=== PATIENT | female | born 1955 | race Caucasian/White ===

== ENCOUNTER 2022-11-18 19:43 | Inpatient (IN) | payer MEDICARE, OTHER, SELFPAY ==
[2022-11-18 19:46] VITALS: BP 144/79; PULSE 113; RESP 20; TEMP 36.8; O2SAT 92; BMI 42.0
--- NOTE | 2022-11-18 19:59 | DI.RAD.S_ITS ---
PROCEDURE: XR CHEST 1V INDICATIONS: Shortness of breath TECHNIQUE: One view of the chest was acquired. COMPARISON: None. FINDINGS: Surgical changes and devices: None. Lungs and pleura: An incomplete inspiratory result is noted, causing a crowded appearance to the lung markings. No focal infiltrates are seen. No pneumothorax or significant pleural effusions are seen. Mediastinum: Mediastinal contours appear normal. Heart size is normal. Bones and chest wall: No suspicious bony lesions. Overlying soft tissues appear unremarkable. IMPRESSION: Limited portable chest examination, without a significant cardiopulmonary abnormality identified. Dictated by: Bubba Paul M.D. on 11/18/2022 at 19:54 Approved by: Bubba Paul M.D. on 11/18/2022 at 19:54
[2022-11-18] MEDS: ALBUTEROL/IPRATROPIUM 3 ML AMPUL INH (20:17)
[2022-11-18 20:18] VITALS: PULSE 108; RESP 22; O2SAT 92
[2022-11-18 20:18] LABS: Add Manual Diff / Slide Review NO; Basophils Absolute Auto 100 /uL (0-100); Basophils Percent Auto 1.1 % (0-2); Eosinophils Absolute Auto 1000 /uL (0-450); Eosinophils Percent Auto 12.6 % (2-4); Hematocrit 39.8 % (36-46); Hemoglobin 13.6 g/dL (12.0-16.0); Lymphocytes Absolute Auto 2200 /uL (1100-4500); Mean Corpuscular HGB Conc 34.3 % (30-36); Mean Corpuscular Hemoglobin 29.5 PG (26-34); Mean Corpuscular Volume 85.9 fL (80-100); Monocytes Absolute Auto 1100 /uL (0-900); Monocytes Percent Auto 14.4 % (3-14); Neutrophils Absolute Auto 3300 /uL (1500-7000); Neutrophils Percent Auto 42.9 % (50-75); Platelet Count 348 X10^3/uL (150-400); Red Blood Cell Count 4.63 X10^6/uL (4.0-5.2); Red Cell Distribution Width 13.5 % (11.6-14.8); White Blood Cell Count 7.7 X10^3/uL (4.5-11.0)
[2022-11-18 20:22] LABS: Prothrombin Time 11.4 SECONDS (10.1-12.7)
[2022-11-18 20:26] LABS: Lactate (Lactic Acid) 1.1 mmol/L (0.7-2.1)
[2022-11-18 20:27] LABS: Alanine Aminotransferase 30 IU/L (<35); Albumin Globulin Ratio 1.3 (1.0-2.8); Alkaline Phosphatase 74 U/L (38-126); Aspartate Aminotransferase 27 IU/L (14-36); BUN Creatinine Ratio 20.9 (6-22); Bilirubin Total 0.5 mg/dL (0.2-1.3); Blood Urea Nitrogen 14 mg/dL (7-17); Calcium 8.6 mg/dL (8.4-10.2); Carbon Dioxide 30 mmol/L (22-32); Chloride 102 mmol/L (98-107); Estimated Glomerular Filt Rate > 60 mL/min (>60); Glucose 162 mg/dL (80-110); HEMOLYSIS < 15 (0-50); Potassium 3.9 mmol/L (3.4-5.1); Sodium 136 mmol/L (137-145)
[2022-11-18 20:38] LABS: NT-proBNP (BNP-Adult 18+) 38 pg/mL (<125); Troponin I < 0.012 ng/mL (0.01-0.034)
[2022-11-18 22:09] LABS: Adenovirus Not Detected (Not Detect); B. parapertussis Not Detected (Not Detecte); Bordetella pertussis Not Detected (Not Detecte); Chlamydophila pneumoniae Not Detected (Not Detect); Coronavirus 229E Not Detected (Not Detect); Coronavirus HKU1 Not Detected (Not Detect); Coronavirus NL 63 Not Detected (Not Detect); Coronavirus OC43 Not Detected (Not Detect); Human Metapneumovirus Not Detected (Not Detect); Human Rhinovirus/Enterovirus Not Detected (Not Detect); Influenza A Not Detected (Not Detect); Influenza B Not Detected (Not Detect); Mycoplasma pneumoniae Not Detected (Not Detect); Parainfluenza Virus 1 Not Detected (Not Detect); Parainfluenza Virus 2 Not Detected (Not Detect); Parainfluenza Virus 3 Not Detected (Not Detect); Parainfluenza Virus 4 Not Detected (Not Detect); Respiratory Syncytial Virus Not Detected (Not Detect); SARS- CoV-2 Not Detected (Not Detecte)
--- NOTE | 2022-11-18 22:33 | ED.SOB ---
HPI - SOB/Dyspnea General Chief Complaint: Shortness of Breath/Dyspnea Stated Complaint: SOB/chest pain/cough/oxygen low (89) Time Seen by Provider: 11/18/22 22:31 Source: patient Mode of arrival: Wheelchair Limitations: no limitations History of Present Illness HPI Narrative: This is a 67-year-old female with lung issues following with pulmonology on inhalers, diabetes, hypertension, dyslipidemia with persistent shortness of breath for the past year patient states she was placed on inhalers before that. She is seen a client support professional and was told to continue inhalers but does not have a clear diagnosis. She states she is had steroids and a Z-Jj 3 times they have been helpful each time but then symptoms return. Last episode of steroids and Z-Jj was 6 weeks ago. Patient states no fevers, she had some chest discomfort today early in the day. She is had a cough with white productive foamy sputum. She denies fevers or chills. She denies nasal congestion. No swelling of her extremities. Today she comes because she was so short of breath she would to stop and take a break while walking. Patient states she felt much better after DuoNeb here but starting to recur. She does note she is been traveling in the last 6 months across the country she is been to [facility], [place] back to this area and is headed back to [facility] where she lives. Prior history C-sections. No known drug allergies. No prior tobacco use. Has 2 alcoholic drinks every couple of weeks. No recreational drugs. She does have what sounds like a steroid inhaler but is not using it regularly only as a rescue medication. Related Data Home Medications Medication Instructions Recorded Confirmed albuterol sulfate 90 mcg/actuation 2 puff inhalation 4XD PRN dyspnea 11/19/22 11/19/22 aerosol inhaler ipratropium 0.5 mg-albuterol 3 mg 3 ml inhalation 4XD 11/19/22 11/19/22 (2.5 mg base)/3 mL nebulization soln irbesartan 150 mg tablet 75 mg PO DAILY blood pressure 11/19/22 11/19/22 metformin 500 mg tablet,extended 500 mg PO DAILY 11/19/22 11/19/22 release 24 hr montelukast 10 mg tablet 10 mg PO DAILY itch 11/19/22 11/19/22 pravastatin 40 mg tablet 40 mg PO DAILY cholesterol 11/19/22 11/19/22 Allergies Allergy/AdvReac Type Severity Reaction Status Date / Time No Known Drug Allergies Allergy Verified 11/18/22 19:46 Review of Systems Review of Systems ROS Unobtainable: All systems reviewed & are unremarkable except as noted in HPI and below Patient History Social History Smoking Status: Never smoker Smoking Status: Never smoker alcohol intake frequency: a few times a week Substance Use Type: does not use Exam Narrative Exam Narrative: GENERAL: Alert and oriented x three, female in mild distress. HEENT: Head normocephalic, atraumatic, EOMI, pupils reactive, face symmetric, moist mucous membranes NECK: Supple, full range of motion CARDIOVASCULAR: Regular rate and rhythm without murmurs, rubs or gallops. RESPIRATORY: Breath sounds equal bilaterally, Bilateral wheezes upper lungs, not appreciated as much in the lower, no rales or rhonchi. no tachypnea. Patient does appear little short of breath with speech. She is coughing up some white productive sputum along with sort of clear liquid phone. ABDOMEN: Soft, nontender. Normoactive bowel sounds all 4 quadrants. No guarding or rebound, rigidity, no mass : No CVA tenderness EXTREMITIES: Normal range of motion, no clubbing or edema. Neurovascularly intact NEUROLOGICAL: Cranial nerves II through XII grossly intact. Moving all extremities SKIN: Warm, dry, no petechiae, no rashes or lesions. Initial Vital Signs Initial Vital Signs: Vital Signs Temperature 98.3 F 11/18/22 19:46 Pulse Rate 113 H 11/18/22 19:46 Respiratory Rate 20 11/18/22 19:46 Blood Pressure 144/79 H 11/18/22 19:46 Pulse Oximetry 92 11/18/22 19:46 Oxygen Delivery Method Room Air 11/18/22 19:46 Course Orders Ordered: ED Orders 11/18/22 23:26 CT angio chest PE protocol Stat 11/19/22 02:00 Sputum Culture Stat Acetaminophen (Acetaminophen 325 Mg Tablet) 650 mg PO Q6H JOÃO Last Admin: 11/19/22 04:39 Dose: Not Given Documented By: AT Al Hydrox/Mg Hydrox/Simethicone (Mag Hydrox/Alum/Simeth 30 Ml Udc) 30 ml PO Q6HR PRN PRN Reason: Dyspepsia Albuterol (Albuterol 2.5 Mg/3 Ml Neb (Adult)) 2.5 mg INH [id number] PRN PRN Reason: Shortness Of Breath Albuterol/Ipratropium (Albuterol/Ipratropium 3 Ml Ampul) 3 ml INH QID JOÃO Azithromycin (Azithromycin 250 Mg Tablet) 250 mg PO DAILY JOÃO Losartan Potassium (Losartan 25 Mg Tablet) 75 mg PO DAILY JOÃO Metformin HCl (Metformin Hcl 500 Mg Tablet) 500 mg PO 0800 JOÃO Montelukast Sodium (Montelukast 10 Mg Tablet) 10 mg PO DAILY JOÃO Naloxone HCl (Naloxone 0.4 Mg/Ml Vial) 0.2 mg IV Q2MIN PRN PRN Reason: Opiate Reversal Pravastatin Sodium (Pravastatin 20 Mg Tablet) 40 mg PO BEDTIME JOÃO Prednisone (Prednisone 20 Mg Tablet) 40 mg PO DAILY JOÃO Discontinued Medications Albuterol (Albuterol 2.5 Mg/3 Ml Neb (Adult)) 5 mg INH NOW ONE Stop: 11/18/22 23:27 Last Admin: 11/19/22 00:11 Dose: 5 mg Documented By: DARIEN Albuterol/Ipratropium (Albuterol/Ipratropium 3 Ml Ampul) 3 ml INH NOW ONE Stop: 11/18/22 20:14 Last Admin: 11/18/22 20:17 Dose: 3 ml Documented By: RAMON Albuterol/Ipratropium (Albuterol/Ipratropium 3 Ml Ampul) 3 ml INH RTQ4HR PRN PRN Reason: Shortness Of Breath Methylprednisolone (Methylprednisolone 125 Mg/2 Ml Vial) 125 mg IV NOW ONE Stop: 11/18/22 23:27 Last Admin: 11/18/22 23:35 Dose: 125 mg Documented By: DANIELLE Vital Signs Vital signs: Vital Signs - 8 hr 11/18/22 19:46 11/18/22 20:18 Temperature 98.3 F Pulse Rate 113 H 108 H Respiratory Rate 20 22 Blood Pressure 144/79 H Pulse Oximetry 92 92 Oxygen Delivery Method Room Air Room Air MDM - SOB/Dyspnea Lab Data 11/18/22 20:05 11/18/22 20:05 Labs: Lab Results 11/18/22 11/18/22 11/18/22 Range/Units 20:05 20:05 20:05 WBC 7.7 (4.5-11.0) X10^3/uL RBC 4.63 (4.0-5.2) X10^6/uL Hgb 13.6 (12.0-16.0) g/dL Hct 39.8 (36-46) % MCV 85.9 (80-100) fL MCH 29.5 (26-34) PG MCHC 34.3 (30-36) % RDW 13.5 (11.6-14.8) % Plt Count 348 (150-400) X10^3/uL Neut % (Auto) 42.9 L (50-75) % Lymph % (Auto) 29.0 (25-40) % [place] % (Auto) 14.4 H (3-14) % Eos % (Auto) 12.6 H (2-4) % Baso % (Auto) 1.1 (0-2) % Neut # (Auto) 3300 (5306-6332) /uL Lymph # (Auto) 2200 (3357-0200) /uL [place] # (Auto) 1100 H (0-900) /uL Eos # (Auto) 1000 H (0-450) /uL Baso # (Auto) 100 (0-100) /uL PT 11.4 (10.1-12.7) SECONDS INR 1.0 (0.9-1.3) Sodium 136 L (137-145) mmol/L Potassium 3.9 (3.4-5.1) mmol/L Chloride 102 (98-107) mmol/L Carbon Dioxide 30 (22-32) mmol/L BUN 14 (7-17) mg/dL Creatinine 0.67 (0.52-1.04) mg/dL Estimated GFR > 60 (>60) mL/min BUN/Creatinine Ratio 20.9 (6-22) Glucose 162 H (80-110) mg/dL Lactate (0.7-2.1) mmol/L Calcium 8.6 (8.4-10.2) mg/dL Total Bilirubin 0.5 (0.2-1.3) mg/dL AST 27 (14-36) IU/L ALT 30 (<35) IU/L Alkaline Phosphatase 74 (38-126) U/L Troponin I < 0.012 (0.01-0.034) ng/mL NT-Pro-B Natriuret Pep 38 (<125) pg/mL Total Protein 7.0 (6.3-8.2) g/dL Albumin 4.0 (3.5-5.0) g/dL Globulin 3.0 (1.7-4.1) g/dL Albumin/Globulin Ratio 1.3 (1.0-2.8) Chlamy pneumoniae PCR (Not Detect) Adenovirus (PCR) (Not Detect) B. pertussis DNA (PCR) (Not Detecte) B.parapertussis DNA PCR (Not Detecte) Coronavirus OC43 (PCR) (Not Detect) Coronavirus HKU1 (PCR) (Not Detect) Coronavirus 229E (PCR) (Not Detect) SARS-CoV-2 (PCR) (Not Detecte) Coronavirus NL63 (PCR) (Not Detect) Human Metapneumovir PCR (Not Detect) Influenza Type A (PCR) (Not Detect) Influenza Type B (PCR) (Not Detect) M. pneumoniae (PCR) (Not Detect) Parainfluenza 1 (PCR) (Not Detect) Parainfluenza 2 (PCR) (Not Detect) Parainfluenza 3 (PCR) (Not Detect) Parainfluenza 4 (PCR) (Not Detect) RSV (PCR) (Not Detect) Entero/Rhino (PCR) (Not Detect) 11/18/22 11/18/22 11/18/22 Range/Units 20:05 20:05 20:47 WBC (4.5-11.0) X10^3/uL RBC (4.0-5.2) X10^6/uL Hgb (12.0-16.0) g/dL Hct (36-46) % MCV (80-100) fL MCH (26-34) PG MCHC (30-36) % RDW (11.6-14.8) % Plt Count (150-400) X10^3/uL Neut % (Auto) (50-75) % Lymph % (Auto) (25-40) % [place] % (Auto) (3-14) % Eos % (Auto) (2-4) % Baso % (Auto) (0-2) % Neut # (Auto) (9380-2151) /uL Lymph # (Auto) (5727-6503) /uL [place] # (Auto) (0-900) /uL Eos # (Auto) (0-450) /uL Baso # (Auto) (0-100) /uL PT (10.1-12.7) SECONDS INR (0.9-1.3) Sodium (137-145) mmol/L Potassium (3.4-5.1) mmol/L Chloride (98-107) mmol/L Carbon Dioxide (22-32) mmol/L BUN (7-17) mg/dL Creatinine (0.52-1.04) mg/dL Estimated GFR (>60) mL/min BUN/Creatinine Ratio (6-22) Glucose (80-110) mg/dL Lactate 1.1 (0.7-2.1) mmol/L Calcium (8.4-10.2) mg/dL Total Bilirubin (0.2-1.3) mg/dL AST (14-36) IU/L ALT (<35) IU/L Alkaline Phosphatase (38-126) U/L Troponin I (0.01-0.034) ng/mL NT-Pro-B Natriuret Pep Cancelled (<125) pg/mL Total Protein (6.3-8.2) g/dL Albumin (3.5-5.0) g/dL Globulin (1.7-4.1) g/dL Albumin/Globulin Ratio (1.0-2.8) Chlamy pneumoniae PCR Not detected (Not Detect) Adenovirus (PCR) Not detected (Not Detect) B. pertussis DNA (PCR) Not detected (Not Detecte) B.parapertussis DNA PCR Not detected (Not Detecte) Coronavirus OC43 (PCR) Not detected (Not Detect) Coronavirus HKU1 (PCR) Not detected (Not Detect) Coronavirus 229E (PCR) Not detected (Not Detect) SARS-CoV-2 (PCR) Not detected (Not Detecte) Coronavirus NL63 (PCR) Not detected (Not Detect) Human Metapneumovir PCR Not detected (Not Detect) Influenza Type A (PCR) Not detected (Not Detect) Influenza Type B (PCR) Not detected (Not Detect) M. pneumoniae (PCR) Not detected (Not Detect) Parainfluenza 1 (PCR) Not detected (Not Detect) Parainfluenza 2 (PCR) Not detected (Not Detect) Parainfluenza 3 (PCR) Not detected (Not Detect) Parainfluenza 4 (PCR) Not detected (Not Detect) RSV (PCR) Not detected (Not Detect) Entero/Rhino (PCR) Not detected (Not Detect) Imaging Data Chest x-ray: Radiologist's Impression: [address] [address] XRay Report Signed Patient: Constance Espinoza MR#: [id number] : 1955 Acct:[id number] Age/Sex: 67 / F Date of Service: 11/18/22 Loc: ED Accession Number: [id number] ?? Procedure: XR chest 1V Ordering Provider: Kitty Aguilar D.O. PROCEDURE:? XR CHEST 1V ? INDICATIONS:? Shortness of breath ? TECHNIQUE:? One view of the chest was acquired.? ? COMPARISON:? None. ? FINDINGS:? ? Surgical changes and devices:? None.? ? Lungs and pleura:? An incomplete inspiratory result is noted, causing a crowded appearance to the lung markings.? No focal infiltrates are seen.? No pneumothorax or significant pleural effusions are seen. ? ? Mediastinum:? Mediastinal contours appear normal.? Heart size is normal.? ? Bones and chest wall:? No suspicious bony lesions.? Overlying soft tissues appear unremarkable.? ? ? IMPRESSION:? ? Limited portable chest examination, without a significant cardiopulmonary abnormality identified.? ? ? Dictated by: Bubba Paul M.D. on 11/18/2022 at 19:54 ? ? Approved by: Bubba Paul M.D. on 11/18/2022 at 19:54?? ECG Data Attestation: I personally reviewed and interpreted this ECG as follows: Prior ECG tracings: not available for review Interpretation: Sinus tachycardia with premature atrial complexes rate of 1 0 6p are 160, QRS is 70 QTC of 456. No acute ST elevation or depression is appreciated. No priors for comparison. MDM Narrative Medical decision making narrative: This is a 67-year-old female with known lung but unclear diagnosis disease. Patient is normally on inhalers but not using her steroid inhaler regularly. Appears to likely be having an exacerbation but is tachycardic and has been traveling across the country in an RV for the past 6 months. Patient's chest x-ray does not show acute change, labs do not show a clear infectious cause normal hemoglobin electrolytes show a sodium 136 normal renal function glucose of 162- lactate negative troponin and BNP of 38. Respiratory panel was negative. Patient had DuoNeb which was somewhat helpful. Was given steroids and additional nebs. discussed with patient D-dimer versus CT angio, I suspect based on her age, BMI it will likely be positive and she is somewhat high-risk with her travel and tachycardia and after discussion elects for CT angio of the chest which was negative for pulmonary emboli, no clear changes to lung parenchyma, pneumonia or other clear source for her hypoxia. She has a thyroid nodule she was updated as well as an accessory splenule. Patient was noted to be 89-90% sitting in bed she feels much improved she would like to go home but when ambulated drops to 87-83%. Patient can maintain 92% with 1-2 L nasal cannula. No increased respiratory distress and she states she is much improved from when she 1st arrived. Spoke with Dr. Johnson, telehospitalist who accepts for admission. Discharge Plan Departure Patient Disposition: Admitted As Inpatient Clinical Impression: Acute respiratory failure with hypoxia, Thyroid nodule, Accessory spleen, Exacerbation of reactive airway disease Admit Date/Time: 11/19/22 02:02 Admit Provider: Kristian Johnson
--- NOTE | 2022-11-18 23:26 | DI.CT.S_ITS ---
PROCEDURE: CT ANGIO CHEST PE PROTOCOL INDICATIONS: worsening short of breath, traveling [place] country TECHNIQUE: After the administration of intravenous contrast, 2 mm thick sections acquired from the pulmonary apices to the posterior costophrenic angles. 3-dimensional maximum intensity projection (MIP) coronal and sagittal reformats were then acquired through the thorax. For radiation dose reduction, the following was used: automated exposure control, adjustment of mA and/or kV according to patient size. COMPARISON: [facility], , XR CHEST 1V, 11/18/2022, 20:00. FINDINGS: Image quality: Limited by bolus timing. Pulmonary arteries: The bolus of the contrast injection is suboptimal. The main pulmonary artery measures approximately 190 Hounsfield units. Pulmonary artery densities are greater than 250 Hounsfield units are considered to be ideal for evaluation of pulmonary embolism. However, no large or central pulmonary emboli are seen on these images. No pulmonary emboli are seen more distally, although sensitivity for detection of such is limited on this study. Lungs and pleura: Mild streaky opacities can be seen at the lung bases, with the appearance of atelectasis. No pleural effusions or pneumothorax. Central and peripheral airways are patent. Mediastinum: Heart size is normal, without pericardial effusion. No mediastinal or hilar adenopathy. Borderline prominent mediastinal lymph nodes can be seen. Thoracic aorta is normal in caliber and enhancement. Esophagus is normal in caliber, without hiatal hernia. Bones and chest wall: No suspicious bony lesions. Ribs and thoracic spine appear intact throughout. Age-appropriate bony degenerative changes are seen. Thyroid gland demonstrates a 2.4 cm right thyroid nodule. No axillary or supraclavicular adenopathy. Abdomen: Visualized upper abdominal solid organs appear normal in the early arterial phase of enhancement. Incidental note is made of an accessory splenule along the hilum of the primary spleen. IMPRESSION: No large or central pulmonary embolism can be seen. A 2.4 cm right thyroid nodule is noted. When clinically appropriate, a follow-up thyroid ultrasound would be recommended. Additional findings: Accessory splenule Dictated by: Bubba Paul M.D. on 11/18/2022 at 23:29 Approved by: Bubba Paul M.D. on 11/18/2022 at 23:32
[2022-11-18] MEDS: methylPREDNISolone 125 MG/2 ML VIAL IV (23:35)
[2022-11-19] VITALS (9 sets, daily range): BP systolic 120–156; BP diastolic 55–67; PULSE 93–117; RESP 17–24; TEMP 36.3–37; O2SAT 89–93; BMI 42.0
[2022-11-19] MEDS: ALBUTEROL 2.5 MG/3 ML NEB (ADULT) 5 MG INH (00:11)
--- NOTE | 2022-11-19 03:38 | PM.HP.1 ---
History of Present Illness History of Present Illness Date Patient Seen: 11/19/22 Chief complaint: SOB/chest pain/cough/oxygen low (89) Narrative: 67 y/o recently diagnosed with reactive airway disease, had PFTs, at home with albuterol and singulair, inhaled steroid, who developed progressive shortness of breath over the past few days and presents to Ed hypoxemic. [facility] Social History Smoking Status: Never smoker Meds Home Medications and Allergies Home Medications Medication Instructions Recorded Confirmed Type albuterol sulfate 90 mcg/actuation 2 puff inhalation 4XD PRN dyspnea 11/19/22 11/19/22 History aerosol inhaler ipratropium 0.5 mg-albuterol 3 mg 3 ml inhalation 4XD 11/19/22 11/19/22 History (2.5 mg base)/3 mL nebulization soln irbesartan 150 mg tablet 75 mg PO DAILY blood pressure 11/19/22 11/19/22 History metformin 500 mg tablet,extended 500 mg PO DAILY 11/19/22 11/19/22 History release 24 hr montelukast 10 mg tablet 10 mg PO DAILY itch 11/19/22 11/19/22 History pravastatin 40 mg tablet 40 mg PO DAILY cholesterol 11/19/22 11/19/22 History Allergies Allergy/AdvReac Type Severity Reaction Status Date / Time No Known Drug Allergies Allergy Verified 11/18/22 19:46 Review of Systems Constitutional Comments: no fever or chills Cardiovascular Comments: w/o chest pain or palpitations Respiratory Comments: shortness of breath, wheezing, non-productive cough Gastrointestinal Comments: w/o N/V Genitourinary Comments: w/o dysuria Allergic/Immunologic Comments: seasonal allergies Exam Vital Signs (past 8 hours): - 11/18/22 19:46 11/18/22 20:18 11/19/22 02:28 Temperature 98.3 F 97.3 F L Pulse Rate 113 H 108 H 93 H Respiratory Rate 20 22 22 Blood Pressure 144/79 H 153/67 H Pulse Oximetry 92 92 92 Oxygen Delivery Method Room Air Room Air Nasal Cannula Oxygen Flow Rate 2 Oxygen Delivery Method Nasal Cannula Oxygen Flow Rate 2 Const Other: sitting in bed in no distress Cardio Other: tachycardic, regular GI Other: soft, not distended Skin Other: w/o rashes Neuro Other: w/o focal deficits Objective Labs 11/18/22 20:05 11/18/22 20:05 Labs: Laboratory Results - last 24 hr 11/18/22 11/18/22 11/18/22 20:05 20:05 20:05 WBC 7.7 RBC 4.63 Hgb 13.6 Hct 39.8 MCV 85.9 MCH 29.5 MCHC 34.3 RDW 13.5 Plt Count 348 Neut % (Auto) 42.9 L Lymph % (Auto) 29.0 [place] % (Auto) 14.4 H Eos % (Auto) 12.6 H Baso % (Auto) 1.1 Neut # (Auto) 3300 Lymph # (Auto) 2200 [place] # (Auto) 1100 H Eos # (Auto) 1000 H Baso # (Auto) 100 PT 11.4 INR 1.0 Sodium 136 L Potassium 3.9 Chloride 102 Carbon Dioxide 30 BUN 14 Creatinine 0.67 Estimated GFR > 60 BUN/Creatinine Ratio 20.9 Glucose 162 H Lactate Calcium 8.6 Total Bilirubin 0.5 AST 27 ALT 30 Alkaline Phosphatase 74 Troponin I < 0.012 NT-Pro-B Natriuret Pep 38 Total Protein 7.0 Albumin 4.0 Globulin 3.0 Albumin/Globulin Ratio 1.3 Chlamy pneumoniae PCR Adenovirus (PCR) B. pertussis DNA (PCR) B.parapertussis DNA PCR Coronavirus OC43 (PCR) Coronavirus HKU1 (PCR) Coronavirus 229E (PCR) SARS-CoV-2 (PCR) Coronavirus NL63 (PCR) Human Metapneumovir PCR Influenza Type A (PCR) Influenza Type B (PCR) M. pneumoniae (PCR) Parainfluenza 1 (PCR) Parainfluenza 2 (PCR) Parainfluenza 3 (PCR) Parainfluenza 4 (PCR) RSV (PCR) Entero/Rhino (PCR) 11/18/22 11/18/22 11/18/22 20:05 20:05 20:47 WBC RBC Hgb Hct MCV MCH MCHC RDW Plt Count Neut % (Auto) Lymph % (Auto) [place]yer % (Auto) Eos % (Auto) Baso % (Auto) Neut # (Auto) Lymph # (Auto) [place]yer # (Auto) Eos # (Auto) Baso # (Auto) PT INR Sodium Potassium Chloride Carbon Dioxide BUN Creatinine Estimated GFR BUN/Creatinine Ratio Glucose Lactate 1.1 Calcium Total Bilirubin AST ALT Alkaline Phosphatase Troponin I NT-Pro-B Natriuret Pep Cancelled Total Protein Albumin Globulin Albumin/Globulin Ratio Chlamy pneumoniae PCR Not detected Adenovirus (PCR) Not detected B. pertussis DNA (PCR) Not detected B.parapertussis DNA PCR Not detected Coronavirus OC43 (PCR) Not detected Coronavirus HKU1 (PCR) Not detected Coronavirus 229E (PCR) Not detected SARS-CoV-2 (PCR) Not detected Coronavirus NL63 (PCR) Not detected Human Metapneumovir PCR Not detected Influenza Type A (PCR) Not detected Influenza Type B (PCR) Not detected M. pneumoniae (PCR) Not detected Parainfluenza 1 (PCR) Not detected Parainfluenza 2 (PCR) Not detected Parainfluenza 3 (PCR) Not detected Parainfluenza 4 (PCR) Not detected RSV (PCR) Not detected Entero/Rhino (PCR) Not detected Assessment & Plan Assessment and plan (1) Exacerbation of reactive airway disease: Status: Acute (2) Acute respiratory failure with hypoxia: Status: Acute (3) Thyroid nodule: Status: Acute (4) HTN (hypertension): Status: Acute (5) HLD (hyperlipidemia): Status: Acute (6) Diabetes: Status: Acute Plan 67 y/o with PMH of reactive airway disease, has steroid inhaler at home that she does not use consistently, who had PFTs but not aware of results, presented to ED with severe shortness of breath, hypoxemic, admitted for Tx with steroid, bronchodilators, O2 Assessment & Plan narrative: 1. Reactive Airway Disease - Acute Exacerbation - pulmonary follow up - Singulair - bronchodilators, steroid - zithromax for 5 days 2. Acute Hypoxemic Respiratory Failure - O2 for sats of >92 - never used oxygen before 3. HTN - Irbesartan at home - Losartan 75 mg daily 4. DM - Metformin 500 mg ER daily 5. HLD - statin
[2022-11-19] MEDS: ALBUTEROL/IPRATROPIUM 3 ML AMPUL INH ×5 (07:15→20:35)
[2022-11-19] MEDS: LOSARTAN 25 MG TABLET 75 MG PO (08:43)
[2022-11-19] MEDS: AZITHROMYCIN 250 MG TABLET PO (08:44)
[2022-11-19] MEDS: MONTELUKAST 10 MG TABLET PO (08:44)
[2022-11-19] MEDS: METFORMIN HCL 500 MG TABLET PO (08:44)
[2022-11-19] MEDS: predniSONE 20 MG TABLET 40 MG PO (08:44)
--- NOTE | 2022-11-19 08:52 | P.PN_ITS ---
Subjective Subjective Interval history: Patient feeling somewhat better but still requiring O2 supplementation. The coughing secondary to bronchospasm. No fever or chills. Exam Vital Signs (past 8 hours): - 11/19/22 02:28 11/19/22 02:45 11/19/22 02:10 Temperature 97.3 F L 98 F Pulse Rate 93 H 103 H Respiratory Rate 22 23 Blood Pressure 153/67 H 156/65 H Pulse Oximetry 92 93 Oxygen Delivery Method Nasal Cannula Nasal Cannula Oxygen Flow Rate 2 2 Fraction of Inspired Oxygen 11/19/22 05:57 11/19/22 07:24 Temperature Pulse Rate 100 H Respiratory Rate 20 Blood Pressure Pulse Oximetry 90 L Oxygen Delivery Method Nasal Cannula Nasal Cannula Oxygen Flow Rate 1 1 Fraction of Inspired Oxygen 24 Fraction of Inspired Oxygen 24 Oxygen Delivery Method Nasal Cannula Oxygen Flow Rate 1 Narrative Exam Narrative: General: Alert and oriented x3. In no acute medical distress HEENT: Pupils equal reactive to light. Extraocular movements normal. Requiring O2 supplementation by nasal prongs. Neck is supple. Trachea is midline. Head is normocephalic. Cardiovascular: Heart sounds S1 and S2 with no extra sounds or murmurs. Peripheral pulses equal bilaterally. Respiratory: Decreased air entry throughout the lung prince in general. Expiratory wheeze intermittently throughout the lung prince Gastrointestinal: Abdomen is soft. Nontender. Bowel sounds normal. Objective Labs 11/18/22 20:05 11/18/22 20:05 Labs: Laboratory Results - last 24 hr 11/18/22 11/18/22 11/18/22 20:05 20:05 20:05 WBC 7.7 RBC 4.63 Hgb 13.6 Hct 39.8 MCV 85.9 MCH 29.5 MCHC 34.3 RDW 13.5 Plt Count 348 Neut % (Auto) 42.9 L Lymph % (Auto) 29.0 [place] % (Auto) 14.4 H Eos % (Auto) 12.6 H Baso % (Auto) 1.1 Neut # (Auto) 3300 Lymph # (Auto) 2200 [place] # (Auto) 1100 H Eos # (Auto) 1000 H Baso # (Auto) 100 PT 11.4 INR 1.0 Sodium 136 L Potassium 3.9 Chloride 102 Carbon Dioxide 30 BUN 14 Creatinine 0.67 Estimated GFR > 60 BUN/Creatinine Ratio 20.9 Glucose 162 H Lactate Calcium 8.6 Total Bilirubin 0.5 AST 27 ALT 30 Alkaline Phosphatase 74 Troponin I < 0.012 NT-Pro-B Natriuret Pep 38 Total Protein 7.0 Albumin 4.0 Globulin 3.0 Albumin/Globulin Ratio 1.3 Chlamy pneumoniae PCR Adenovirus (PCR) B. pertussis DNA (PCR) B.parapertussis DNA PCR Coronavirus OC43 (PCR) Coronavirus HKU1 (PCR) Coronavirus 229E (PCR) SARS-CoV-2 (PCR) Coronavirus NL63 (PCR) Human Metapneumovir PCR Influenza Type A (PCR) Influenza Type B (PCR) M. pneumoniae (PCR) Parainfluenza 1 (PCR) Parainfluenza 2 (PCR) Parainfluenza 3 (PCR) Parainfluenza 4 (PCR) RSV (PCR) Entero/Rhino (PCR) 11/18/22 11/18/22 11/18/22 20:05 20:05 20:47 WBC RBC Hgb Hct MCV MCH MCHC RDW Plt Count Neut % (Auto) Lymph % (Auto) [place] % (Auto) Eos % (Auto) Baso % (Auto) Neut # (Auto) Lymph # (Auto) [place] # (Auto) Eos # (Auto) Baso # (Auto) PT INR Sodium Potassium Chloride Carbon Dioxide BUN Creatinine Estimated GFR BUN/Creatinine Ratio Glucose Lactate 1.1 Calcium Total Bilirubin AST ALT Alkaline Phosphatase Troponin I NT-Pro-B Natriuret Pep Cancelled Total Protein Albumin Globulin Albumin/Globulin Ratio Chlamy pneumoniae PCR Not detected Adenovirus (PCR) Not detected B. pertussis DNA (PCR) Not detected B.parapertussis DNA PCR Not detected Coronavirus OC43 (PCR) Not detected Coronavirus HKU1 (PCR) Not detected Coronavirus 229E (PCR) Not detected SARS-CoV-2 (PCR) Not detected Coronavirus NL63 (PCR) Not detected Human Metapneumovir PCR Not detected Influenza Type A (PCR) Not detected Influenza Type B (PCR) Not detected M. pneumoniae (PCR) Not detected Parainfluenza 1 (PCR) Not detected Parainfluenza 2 (PCR) Not detected Parainfluenza 3 (PCR) Not detected Parainfluenza 4 (PCR) Not detected RSV (PCR) Not detected Entero/Rhino (PCR) Not detected PFSH Social History Smoking Status: Never smoker Comment: History of lung issues following with pulmonology on inhalers and nebulizer Diabetes on metformin Hypertension on irbesartan Dyslipidemia on pravastatin Assessment & Plan Assessment & Plan narrative: 1. Reactive Airway Disease - Acute Exacerbation - pulmonary follow up in the community following discharge - Singulair - bronchodilators, steroid - zithromax for 5 days, 250 mg daily 2. Acute Hypoxemic Respiratory Failure - O2 for sats of >92 - never used oxygen before 3. HTN - Irbesartan at home - Losartan 75 mg daily -mildly elevated today. Likely secondary to anxiety and steroids. 4. DM - Metformin 500 mg ER daily, continue 5. HLD - statin, continue 6. Concern for silent GERD possibly contributing to persistent recurrent reacti ve airway disease exacerbations. Initiate Protonix 40 mg p.o. b.i.d. 7. Tachycardia. 100 today. Continue to follow. Likely related to steroids. Time spent with patient: 40 minutes Follow patient clinically and follow labs. Code status: Full code DVT prophylaxis: Enoxaparin 40 mg subQ daily initiated today. Substitute decision maker: Jamir Sigala spouse COVID-19 Result date/Date tested (Pos, Neg/Pending): 11/18/22 Quality MIPS - Admit I confirm the patient?s Advance Care Plan is present, Code status is documented, Surrogate decision maker is in patient?s record [If Yes, STOP here]: Yes MIPS - Meds 'Current medications' to include all prescriptions, [id number] products, herbals, cannabis/cannabidiol products, and vitamin/mineral/dietary (nutritional) supplements. I have utilized all available resources to obtain, update, or review the patient?s current medications. [If Yes, STOP here]: Yes
[2022-11-19] MEDS: LORazepam 0.5 MG TABLET PO ×2 (09:35→14:20)
--- NOTE | 2022-11-19 09:36 | CM.DANOTE ---
Initial Discharge Assessment Note: Case reviewed, met with patient. Introduced self and role. Payer: Commercial Insurance and Medicare PCP: Unknown (lives in [place]) 67 year old female admitted early this am for increased SOB, she has been recently diagnosed with reactive airway disease. She has been hypoxemic. Patient lives in [place], [place] with her spouse and is independent and drives. They have been in [place] in their RV and boat doing crabbing here. They are active and travel quite a bit. PLAN: Discharge when medically cleared to care of spouse, no discharge planning needs identified. EDY Discharge Planning/Care Management CM Discharge Assessment Start: 11/19/22 09:34 Freq: Status: Active Protocol: Document 11/19/22 09:34 (Rec: 11/19/22 09:35 [id number]) Discharge Planning Assessment Assigned Guest Experience Captain Rosita Garcia RN/DCP Advance Directives? No History Provided By Patient,Medical Record Prior Living Arrangements House Household Members spouse Type of transporation used prior to Drives own vehicle admit Independent with ADL's Yes Is patient alert and oriented? Yes Caregiver for Another No Barriers to Discharge No Discharge Plan Home Referrals Initiated None needed Review Status In Process Next Review Type Continued Stay Review
[2022-11-19] MEDS: ACETAMINOPHEN 325 MG TABLET 650 MG PO ×2 (16:37→16:38)
[2022-11-19] MEDS: PANTOPRAZOLE DR 40 MG TABLET PO ×2 (16:37→22:04)
[2022-11-19] MEDS: PRAVASTATIN 20 MG TABLET 40 MG PO (22:04)
[2022-11-20] VITALS (9 sets, daily range): BP systolic 111–152; BP diastolic 55–70; PULSE 86–118; RESP 18–20; TEMP 36.1–36.3; O2SAT 90–94
[2022-11-20 06:08] LABS: Add Manual Diff / Slide Review NO; Basophils Absolute Auto 0 /uL (0-100); Basophils Percent Auto 0.1 % (0-2); Eosinophils Absolute Auto 0 /uL (0-450); Eosinophils Percent Auto 0.2 % (2-4); Hematocrit 38.3 % (36-46); Hemoglobin 12.8 g/dL (12.0-16.0); Lymphocytes Absolute Auto 2000 /uL (1100-4500); Lymphocytes Percent Auto 19.9 % (25-40); Mean Corpuscular HGB Conc 33.5 % (30-36); Mean Corpuscular Hemoglobin 29.2 PG (26-34); Monocytes Absolute Auto 1200 /uL (0-900); Monocytes Percent Auto 12.2 % (3-14); Neutrophils Absolute Auto 6700 /uL (1500-7000); Neutrophils Percent Auto 67.6 % (50-75); Platelet Count 365 X10^3/uL (150-400); Red Cell Distribution Width 13.9 % (11.6-14.8)
[2022-11-20 06:19] LABS: BUN Creatinine Ratio 26.4 (6-22); Blood Urea Nitrogen 19 mg/dL (7-17); C-Reactive Protein Quant < 0.5 mg/dL (<1.0); Carbon Dioxide 28 mmol/L (22-32); Chloride 104 mmol/L (98-107); Cholesterol 184 mg/dL (140-199); Estimated Glomerular Filt Rate > 60 mL/min (>60); Glucose 161 mg/dL (80-110); HDL Cholesterol 62 mg/dL (40-60); HEMOLYSIS < 15 (0-50); LDL Cholesterol Calculated 101 mg/dL (<100); Potassium 4.3 mmol/L (3.4-5.1); Sodium 137 mmol/L (137-145); Triglycerides 103 mg/dL (35-150)
[2022-11-20] MEDS: PANTOPRAZOLE DR 40 MG TABLET PO ×2 (06:32→20:48)
[2022-11-20] MEDS: LOSARTAN 25 MG TABLET 75 MG PO (08:45)
[2022-11-20] MEDS: METFORMIN HCL 500 MG TABLET PO (08:45)
[2022-11-20] MEDS: AZITHROMYCIN 250 MG TABLET PO (08:46)
[2022-11-20] MEDS: MONTELUKAST 10 MG TABLET PO (08:46)
[2022-11-20] MEDS: ACETAMINOPHEN 325 MG TABLET 650 MG PO ×2 (08:46→20:47)
[2022-11-20] MEDS: predniSONE 20 MG TABLET 40 MG PO (08:46)
--- NOTE | 2022-11-20 09:01 | P.PN_ITS ---
Subjective Subjective Interval history: Patient feels somewhat better today. Is breathing easier. Satting at 94% with 1 L O2 supplementation. Acceptable to be at 92% on room air and this was communicated to the nurse. Goal today will be to taper patient off oxygen if possible. Exam Vital Signs (past 8 hours): - 11/20/22 02:00 11/20/22 07:15 11/20/22 08:45 Temperature 96.9 F L 97.3 F L Pulse Rate 94 H 86 86 Respiratory Rate 18 20 Blood Pressure 111/55 L 139/70 139/70 Pulse Oximetry 92 94 Oxygen Flow Rate 2 1 Fraction of Inspired Oxygen 24 SaO2/FiO2 Ratio 383 Oxygen Delivery Method Nasal Cannula Oxygen Flow Rate 1 Narrative Exam Narrative: General:? Alert and oriented x3.? In no acute medical distress HEENT:? Pupils equal reactive to light.? Extraocular movements normal.? Requiring O2 supplementation by nasal prongs.? Neck is supple.? Trachea is midline.? Head is normocephalic. Cardiovascular:? Heart sounds S1 and S2 with no extra sounds or murmurs.? Peripheral pulses equal bilaterally. Respiratory:? Decreased air entry throughout the lung prince in general but i mproved since yesterday. Expiratory wheeze intermittently throughout the lung prince with less intensity than yesterday. Gastrointestinal:? Abdomen is soft.? Nontender.? Bowel sounds normal. Objective Labs 11/20/22 05:28 11/20/22 05:28 Labs: Laboratory Results - last 24 hr 11/20/22 11/20/22 05:28 05:28 WBC 10.0 RBC 4.40 Hgb 12.8 Hct 38.3 MCV 87.0 MCH 29.2 MCHC 33.5 RDW 13.9 Plt Count 365 Neut % (Auto) 67.6 D Lymph % (Auto) 19.9 L [place] % (Auto) 12.2 Eos % (Auto) 0.2 L Baso % (Auto) 0.1 Neut # (Auto) 6700 Lymph # (Auto) 2000 [place] # (Auto) 1200 H Eos # (Auto) 0 Baso # (Auto) 0 Sodium 137 Potassium 4.3 Chloride 104 Carbon Dioxide 28 BUN 19 H Creatinine 0.72 Estimated GFR > 60 BUN/Creatinine Ratio 26.4 H Glucose 161 H Calcium 9.0 C-Reactive Protein < 0.5 Triglycerides 103 Cholesterol 184 LDL Cholesterol, Calc 101 H HDL Cholesterol 62 H [facility] Social History household members: spouse Smoking Status: Never smoker Assessment & Plan Assessment & Plan narrative: 1. Reactive Airway Disease - Acute Exacerbation - pulmonary follow up in the community following discharge - Singulair - bronchodilators, steroid - zithromax for 5 days, 250 mg daily -on prednisone 40 mg daily, will likely need long taper at discharge 2. Acute Hypoxemic Respiratory Failure - O2 for sats of less than 92% - never used oxygen before 3. HTN - Losartan 75 mg daily -adequate control today 4. DM - Metformin 500 mg ER daily, continue 5. HLD - statin, continue -total cholesterol 184, LDL 101 HDL 62 6. Concern for silent GERD possibly contributing to persistent recurrent reactive airway disease exacerbations.? Protonix 40 mg p.o. b.i.d., continue 7. Tachycardia.? 100 yesterday.? Continue to follow.? Likely related to steroids. Tachycardia appears resolved. Follow patient clinically and follow labs. Code status:? Full code DVT prophylaxis:? Enoxaparin 40 mg subQ daily initiated today. Substitute decision maker:? Jamir Sigala spouse Time Spent With Patient Time with patient: 30 to 49 minutes with 50% spent counseling/coordinating care
[2022-11-20] MEDS: ALBUTEROL/IPRATROPIUM 3 ML AMPUL INH ×4 (09:37→20:07)
[2022-11-20] MEDS: ATORVASTATIN 20 MG TABLET 40 MG PO (20:48)
[2022-11-21] VITALS: BP 116/44; PULSE 92; RESP 17; TEMP 35.9; O2SAT 94
--- NOTE | 2022-11-21 05:33 | PC.NURSE ---
2000: Pt states frustration with being at hospital for 'so long'. stating 'need to get home to [place]' and that her and her only have tonight left for RV spot. This RN relayed to pt that day shift RN explained this to hospitalist, but to reiterate it when Dr comes in 11/21.
[2022-11-21 05:35] VITALS: O2SAT 92
[2022-11-21 06:00] VITALS: BP 118/58; PULSE 96; RESP 15; TEMP 36.4; O2SAT 92
[2022-11-21] MEDS: PANTOPRAZOLE DR 40 MG TABLET PO (06:14)
[2022-11-21 08:17] VITALS: BP 118/58; PULSE 96
[2022-11-21] MEDS: LOSARTAN 25 MG TABLET 75 MG PO (08:17)
[2022-11-21] MEDS: AZITHROMYCIN 250 MG TABLET PO (08:19)
[2022-11-21] MEDS: METFORMIN HCL 500 MG TABLET PO (08:19)
[2022-11-21] MEDS: MONTELUKAST 10 MG TABLET PO (08:19)
[2022-11-21] MEDS: predniSONE 20 MG TABLET 40 MG PO (08:19)
[2022-11-21] MEDS: ALBUTEROL/IPRATROPIUM 3 ML AMPUL INH ×3 (09:07→15:34)
[2022-11-21 12:00] VITALS: BP 135/76; PULSE 96; RESP 18; TEMP 36.2; O2SAT 90
--- NOTE | 2022-11-21 14:42 | CM.DPC ---
DCP Continued: GRAPHITE PAN DRIER TENDER reviewed EMR. Per provider in rounds, likely no needs from CM team and patient has supportive family and friends to assist with oxygen and transportation. GRAPHITE PAN DRIER TENDER entered room and introduced self and role. Patient reports being eager to leave and begin [address] Patient had questions regarding her medication and when that will be ready. GRAPHITE PAN DRIER TENDER acted within area of competency and referred patient to nursing staff for medication questions. Patient reports no needs from CM team at this time. Plan: patient will d/c home with O2 and supportive family and friends. CM team will continue to follow as needed. BLUE [place]
--- NOTE | 2022-11-21 15:19 | P.DS_ITS ---
History of Present Illness History of Present Illness Chief complaint: SOB/chest pain/cough/oxygen low (89) Narrative: Eager to go home and follow-up with her local truck driver. Has appointment set up in 2 days. Have set up patient with oxygen for the trip home. Discharge Providers Provider Date of admission: 11/19/22 02:02 Discharge Date: 11/21/22 Primary care physician: Doctor Lopez, Discharge provider: Lily Aldridge MD Summary Hospital Course Discharge Diagnosis: Reactive Airway Disease - Acute Exacerbation, acute present on admission. Acute hypoxemic respiratory failure, acute present on admission. Hypertension, chronic present on admission Type 2 diabetes, chronic present on admission Hyperlipidemia, chronic present on admission Assignment GERD, likely chronic present on admission Tachycardia acute present on admission Hospital Course: Constance Espinoza is a 67-year-old woman recently diagnosed with reactive airway disease, had PFTs, at home in [facility] and on presentation was being treated with albuterol and singulair, inhaled steroid. She presented due to developing progressive shortness of breath over the past few days. She presented with hypoxemia. Patient was treated with both albuterol and albuterol/ipratropium nebulizer treatment as well as prednisone 40 mg daily and azithromycin 250 mg daily. Due to the concern about silent GERD as being a contributor to the reactive airway disease exacerbation, patient was initiated on pantoprazole 40 mg p.o. b.i.d. and this will be continued on discharge. Patient's usual medications for hypertension, type 2 diabetes and hyperlipidemia were continued during the hospital stay. It required O2 supplementation throughout the hospital stay and was discharged with O2 supplementation to use on her trip home. She has follow-up with her local truck driver already booked for 2 days following discharge. Prednisone at 40 mg daily was continued at the time of discharge. Status at Discharge Cognitive/behavioral status at discharge: at baseline, oriented Functional status at discharge: independent ambulation Overall status at discharge: patient is progressing back to baseline Time Spent with Patient Time spent: Greater than 30 minutes Exam Vital Signs (past 8 hours): - 11/21/22 08:17 11/21/22 12:00 Temperature 97.1 F L Pulse Rate 96 H 96 H Respiratory Rate 18 Blood Pressure 118/58 L 135/76 Pulse Oximetry 90 L Oxygen Flow Rate 3 Fraction of Inspired Oxygen 34 SaO2/FiO2 Ratio 270 Oxygen Delivery Method Nasal Cannula Oxygen Flow Rate 3 Narrative Exam Narrative: General:? Alert and oriented x3.? In no acute medical distress on oxygen supplementation. HEENT:? Pupils equal reactive to light.? Extraocular movements normal.? Requiring O2 supplementation by nasal prongs.? Neck is supple.? Trachea is midline.? Head is normocephalic. Cardiovascular:? Heart sounds S1 and S2 with no extra sounds or murmurs.? Peripheral pulses equal bilaterally. Respiratory:? Decreased air entry throughout the lung prince in general but improved since yesterday. Expiratory wheeze intermittently throughout the lung prince with less intensity than yesterday. Gastrointestinal:? Abdomen is soft.? Nontender.? Bowel sounds normal. Objective Labs 11/20/22 05:28 11/20/22 05:28 [facility] Social History household members: spouse Smoking Status: Never smoker Discharge Plan Discharge Plan Patient Disposition: Home Provider Discharge Comment: Respiratory therapy as provided patient with O2 supplementation and patient needs to use the supplementation at least 3 liters/minute. She given 2 portable tanks that she will return once she gets home and then continue to get supply at home from a local source. Discharge orders & Medications Prescriptions: New albuterol sulfate 2.5 mg /3 mL (0.083 %) Solution For Nebulization 2.5 mg continuous nebulization [id number] MDD 12 ml PRN (Reason: Shortness Of Breath) Qty: 75 0RF ipratropium bromide 250mcg neb 250 mcg/mL 250 mcg continuous inhalation PRN MDD 4 ml PRN (Reason: wheezing) Qty: 25 0RF azithromycin [Zithromax Z-Jj] 250 mg Tablet 250 mg PO DAILY Qty: 3 0RF prednisone 20 mg Tablet 40 mg PO DAILY Qty: 7 0RF lorazepam 0.5 mg Tablet 0.5 mg PO Q4HR PRN (Reason: Anxiety or HR above 100) Qty: 10 0RF pantoprazole 40 mg Tablet,Delayed Release (Dr/Ec) 40 mg PO 0700,2100 Qty: 60 0RF Continued metformin 500 mg tablet extended release 24 hr 500 mg PO DAILY irbesartan 150 mg tablet 75 mg PO DAILY montelukast 10 mg tablet 10 mg PO DAILY pravastatin 40 mg tablet 40 mg PO DAILY albuterol sulfate 90 mcg/actuation HFA aerosol inhaler 2 puff INHALATION 4XD PRN (Reason: dyspnea) Discontinued ipratropium-albuterol 0.5 mg-3 mg(2.5 mg base)/3 mL solution for nebulization 3 ml inhalation 4XD Follow up/Referrals: Doctor Lopez MD [Primary Care Provider] - Activity Restrictions/Additional Instructions: Follow-up with your local truck driver. You do have a thyroid nodule on your imaging and it is recommended follow-up with your primary care to set up an outpatient ultrasound. Use your steroid inhaler twice daily whether you feel good or bad. Take steroids until completed. Take antibiotic until completed. A sputum culture was sent today. Prescription was sent to Please return for new chest pain, shortness of breath, lightheadedness or passing out increasing shortness of breath, new swelling in her extremities or other new or concerning changes. Visit Report/Discharge Packet Instructions: DI for Oxygen Therapy -- Adult, How to Prevent Falls, DI for Reactive Airway Disease-Adult Stand Alone Forms: Patient Portal/API, Stroke Signs & Symptoms Discharge Data Primary Care Provider: Doctor John
--- NOTE | 2022-11-21 16:01 | PC.NURSE ---
Day shift: PIV d/c'ed prior to discharge. Pt still requiring 3L O2 via NC for oxygen saturation about 92 percent. Auscultation of lungs heard expiratory wheezes. Pt discharged home after RT to assess for home O2. Medical supply of oxygen given to patient. Discharge instructions gone over with patient by float RN Dang. Gave patient 2 hard scripts written by MD Aldridge. Other prescriptions sent to [facility] in [place] where patient stated her friend picked up her medication. All questions answered. Pt left via wheelchair and escorted to exit by this RN. Pt's friend picked her up.
== END 2022-11-21 16:33 | disposition home or self-care (01) | DRG 202 ==
LOC: ED 11-19 02:03 → AC 11-19 02:04
PROVIDERS: Neuromusculoskeletal Medicine, Sports Medicine; Admitting Provider Internal Medicine; Emergency Provider Emergency Medicine; Referring Provider Emergency Medicine; Visit Provider Internal Medicine
DX: J45.901 Unspecified asthma with (acute) exacerbation (principal); J96.01 Acute respiratory failure with hypoxia; I10 Essential (primary) hypertension; E11.9 Type 2 diabetes mellitus without complications; E78.5 Hyperlipidemia, unspecified; K21.9 Gastro-esophageal reflux disease without esophagitis; R00.0 Tachycardia, unspecified; Z79.84 Long term (current) use of oral hypoglycemic drugs
CPT/HCPCS: 36415; 71045; 71275; 80048; 80053; 80061; 83605; 83880; 84484; 85025; 85610; 86140; 87070; 87205; 87633; 93005; 94150; 94618; 94640; 94667; 94762; 96374; 99285; J1650; J2930; J7613; Q9967